=== PATIENT | male | born 1965 | race Caucasian/White ===

== ENCOUNTER 2021-05-22 11:41 | Emergency (ER) | payer SELFPAY ==
[~2021-05-22] VITALS: Ht 172 cm; Wt 86.0 kg
--- NOTE | 2021-05-22 12:00 | ED Chest Pain ---
General Chief Complaint: Chest Pain Stated Complaint: SOB History of Present Illness Date Seen by Provider: May 22, 2021 Time Seen by Provider: 11:55 Initial Comments 48-year-old male presents with onset of chest pain 3 hours prior to arrival. Recent past medical history significant for admission and discharge from [facility] May 16 where he was seen and evaluated for heart failure. Patient had a heart catheterization that did not show blockage, an echocardiogram that showed significantly weak heart with an ejection fracture he says "at 10%". Patient sent home on medication and advised to follow-up on 25 May with cardiology. Currently living in [facility] in [facility], but [place] in a [place] town and does not have a local PCP. Patient is a smoker and meth user. Allergies and Home Medications Patient Home Medication List Home Medication List Reviewed: Yes Review of Systems Review of Systems Constitutional: No fever, No malaise; weakness Respiratory: Cough, Shortness of Air Cardiovascular: Chest Pain; Denies Edema, Denies Irregular Heart Rate, Denies Lightheadedness, Denies Palpitations, Denies Syncope Gastrointestinal: Denies Abdominal Pain, Denies Nausea, Denies Vomiting Musculoskeletal: No back pain, No joint pain, No muscle pain, No neck pain Skin: No change in color, No rash Past [id number]-Whdqdh Hx Past Med/Social Hx: Reviewed Nursing Past Med/Soc Hx Physical Exam Vital Signs Vital Signs - First Documented Capillary Refill : Less Than 3 Seconds Height, Weight, BMI Height: '" Weight: lbs. oz. kg; BMI Method: General Appearance: No Apparent Distress, WD/WN HEENT: PERRL/EOMI, Normal ENT Inspection Respiratory: Chest Non Tender, Lungs Clear, Normal Breath Sounds Cardiovascular: Regular Rate, Rhythm, No Edema, No JVD, Normal Peripheral Pulses Gastrointestinal: Non Tender, Soft Extremity: Normal Capillary Refill, Normal Inspection, Normal Range of Motion, Non Tender, No Calf Tenderness Neurologic/Psychiatric: Alert, Oriented x3, No Motor/Sensory Deficits, Normal Mood/Affect Skin: Normal Color, Warm/Dry Progress/Results/Core Measures Results/Orders Lab Results Laboratory Tests Test 05/22/21 12:00 Range/Units White Blood Count 7.6 4.3-11.0 10^3/uL Red Blood Count 5.15 4.35-5.85 10^6/uL Hemoglobin 15.0 13.3-17.7 G/DL Hematocrit 45 40-54 % Mean Corpuscular Volume 88 80-99 FL Mean Corpuscular Hemoglobin 29 25-34 PG Mean Corpuscular Hemoglobin Concent 33 32-36 G/DL Red Cell Distribution Width 13.5 10.0-14.5 % Platelet Count 247 130-400 10^3/uL Mean Platelet Volume 10.2 7.4-10.4 FL Immature Granulocyte % (Auto) 1 % Neutrophils (%) (Auto) 53 42-75 % Lymphocytes (%) (Auto) 33 12-44 % Monocytes (%) (Auto) 11 0-12 % Eosinophils (%) (Auto) 2 0-10 % Basophils (%) (Auto) 1 0-10 % Neutrophils # (Auto) 4.0 1.8-7.8 X 10^3 Lymphocytes # (Auto) 2.5 1.0-4.0 X 10^3 Monocytes # (Auto) 0.8 0.0-1.0 X 10^3 Eosinophils # (Auto) 0.2 0.0-0.3 10^3/uL Basophils # (Auto) 0.1 0.0-0.1 10^3/uL Immature Granulocyte # (Auto) 0.1 0.0-0.1 10^3/uL Sodium Level 136 135-145 MMOL/L Potassium Level 4.8 3.6-5.0 MMOL/L Chloride Level 103 98-107 MMOL/L Carbon Dioxide Level 23 21-32 MMOL/L Anion Gap 10 5-14 MMOL/L Blood Urea Nitrogen 16 7-18 MG/DL Creatinine 1.09 0.60-1.30 MG/DL Estimat Glomerular Filtration Rate > 60 BUN/Creatinine Ratio 15 Glucose Level 111 H 70-105 MG/DL Calcium Level 9.0 8.5-10.1 MG/DL Corrected Calcium 9.2 8.5-10.1 MG/DL Total Bilirubin 0.5 0.1-1.0 MG/DL Aspartate Amino Transf (AST/SGOT) 67 H 5-34 U/L Alanine Aminotransferase (ALT/SGPT) 113 H 0-55 U/L Alkaline Phosphatase 68 40-136 U/L Troponin I < 0.30 <0.30 NG/ML Total Protein 6.6 6.4-8.2 GM/DL Albumin 3.8 3.2-4.5 GM/DL My Orders Orders - ROVENSTINE,ALLAN L DO Cbc With Automated Diff (05/22/21 12:00) Comprehensive Metabolic Panel (05/22/21 12:00) Troponin I Fs (05/22/21 12:00) Chest 1 View Ap/Pa Only (05/22/21 12:00) Ekg Tracing (05/22/21 12:00) Ed Iv/Invasive Line Start (05/22/21 12:00) Vital Signs/I&O 05/22/21 05/22/21 05/22/21 11:45 11:45 12:48 Temp 36.5 36.5 Pulse 92 92 Resp 18 18 B/P (MAP) 106/77 (87) 106/77 (87) Pulse Ox 98 98 O2 Delivery Room Air Room Air Room Air Progress Progress Note : Progress Note patient pain free at discharge, given no medication. Discussed follow up and compliance with medications given from Cardio. He agrees and expresses understanding. Initial ECG Impression Date: May 22, 2021 Initial ECG Impression Time: 11:50 Initial ECG Rate: 90 Initial ECG Rhythm: Normal Sinus, PVC (few) Initial ECG Intervals: Normal Initial ECG Comparisson: No Previous ECG Available Comment no acute ischemic change LV[facility] Diagnostic Imaging Diagonstic Imaging: Xray Comments NDICATION: Chest pain. TECHNIQUE/COMPARISON: A frontal chest was obtained at 11:53 AM and compared to 02/05/2015. FINDINGS: There is increased cardiomegaly. There is no focal infiltrate, pneumothorax, or pleural fluid. There is no sign of edema. IMPRESSION: Increased cardiomegaly compared to the prior study. No focal infiltrate or pleural fluid. Dictated on workstation # [id number] Dict: 05/22/21 1230 Trans: 05/22/21 1231 [id number] Interpreted by: DEVIN ULRICH MD Electronically signed by: Departure Impression Primary Impression: Chest pain Qualified Codes: R07.9 - Chest pain, unspecified Disposition: 01 HOME, SELF-CARE Condition: Stable Departure-Patient Inst. Decision time for Depature: 12:45 Referrals: NO,LOCAL PHYSICIAN (PCP/Family) Primary Care Physician Patient Instructions: Chest Pain (DC) Add. Discharge Instructions: Keep your Cardiology follow up scheduled for 25 May. Continue your current medications as instructed All discharge instructions reviewed with patient and/or family. Voiced understanding. ALLAN VARGHESE DO May 22, 2021 12:00
[2021-05-22 12:12] LABS: BASOPHILS % (AUTO) 1 % (0-10); EOSINOPHILS % (AUTO) 2 % (0-10); HEMATOCRIT 45 % (40-54); LYMPHOCYTES % (AUTO) 33 % (12-44); MEAN CORPUSCULAR HEMOGLOBIN 29 PG (25-34); MEAN CORPUSCULAR HGB CONC 33 G/DL (32-36); MEAN CORPUSCULAR VOLUME 88 FL (80-99); MEAN PLATELET VOLUME 10.2 FL (7.4-10.4); MONOCYTES % (AUTO) 11 % (0-12); NEUTROPHILS % (AUTO) 53 % (42-75); PLATELET COUNT 247 10^3/uL (130-400); WHITE BLOOD COUNT 7.6 10^3/uL (4.3-11.0)
[2021-05-22 12:13] LABS: BASOPHILS # (AUTO) 0.1 10^3/uL (0.0-0.1); EOSINOPHILS # (AUTO) 0.2 10^3/uL (0.0-0.3); LYMPHOCYTES # (AUTO) 2.5 X 10^3 (1.0-4.0); MONOCYTES # (AUTO) 0.8 X 10^3 (0.0-1.0)
--- NOTE | 2021-05-22 12:32 | Diagnostic Imaging Report ---
INDICATION: Chest pain. TECHNIQUE/COMPARISON: A frontal chest was obtained at 11:53 AM and compared to 02/05/2015. FINDINGS: There is increased cardiomegaly. There is no focal infiltrate, pneumothorax, or pleural fluid. There is no sign of edema. IMPRESSION: Increased cardiomegaly compared to the prior study. No focal infiltrate or pleural fluid. Dictated by: Dictated on workstation # [id number]
[2021-05-22 12:40] LABS: ALKALINE PHOSPHATASE 68 U/L (40-136); BILIRUBIN,TOTAL 0.5 MG/DL (0.1-1.0); BUN/CREATININE RATIO 15; CARBON DIOXIDE 23 MMOL/L (21-32); CHLORIDE 103 MMOL/L (98-107); CREATININE SERUM 1.09 MG/DL (0.60-1.30); GFR ESTIMATED > 60; GLUCOSE 111 MG/DL (70-105); POTASSIUM 4.8 MMOL/L (3.6-5.0); SODIUM 136 MMOL/L (135-145)
[2021-05-22 12:41] LABS: ALANINE AMINOTRANSFERASE 113 U/L (0-55); ALBUMIN 3.8 GM/DL (3.2-4.5); TOTAL PROTEIN 6.6 GM/DL (6.4-8.2)
[2021-05-22 12:48] VITALS: BP 106/77
== END 2021-05-22 12:49 | disposition home or self-care (01) ==
LOC: ER FS 11:45
DX: R07.9 Chest pain, unspecified (principal); F17.200 Nicotine dependence, unspecified, uncomplicated; Z95.9 Presence of cardiac and vascular implant and graft, unspecified
CPT/HCPCS: 36415; 71045; 80053; 84484; 85025; 93005